=== PATIENT | male | born 1960 | race Caucasian/White ===

== ENCOUNTER → 2017-12-22 | Day surgery (SDC) | payer OTHER ==
[~2017-12-22] MED LIST: ASPIRIN EC81 MG PO; CRESTOR10 MG; FENTANYL CITRATE/PF 100MCG/2 ML INJ ONE; GLUCOSAMINE PO; HYOSCYAMINE SULFATE 0.5 MG/ML AMP ONE; LIDOCAINE HCL 2% LOCAL INJ 5 ML SDV VIAL INJ ONE; MIDAZOLAM HCL 2 MG/2 ML VIAL ONE; MULTIVITAMIN PO; PROPOFOL IV EMULSION 10 MG/ML 50 ML VIAL ONE; VASCEPA PO; ZYRTEC10 M3; [UNRECOGNIZED DRUG - OTHER] PO
[2017-12-22 12:20] VITALS: BP 108/76
--- NOTE | 2017-12-22 13:16 | Operative Report ---
DATE OF PROCEDURE: December 22, 2017 REFERRING PHYSICIAN: Dr. Theodora Pardo PROCEDURE PERFORMED: Colonoscopy with polypectomy and biopsies. INDICATIONS FOR COLONOSCOPY: Colorectal cancer screening, personal history of colon polyps. MEDICATION: Patient was done under MAC. Please see anesthesiologist's note. PROCEDURE: With the patient in the left lateral decubitus position, the flexible fiberoptic Olympus colonoscope was inserted into the rectum with ease and advanced all the way to the cecum. The mucosa overlying the cecum appeared to be within normal limits. The ileocecal valve was somewhat lobular and generous, and it was biopsied. The scope was then withdrawn slowly. Mucosa overlying the ascending appeared to be within normal limits. One polyp was snared from the transverse colon. Diverticular disease was noted to involve the distal descending and the sigmoid colon. One minute, hyperplastic-appearing polyp was hot biopsied from the sigmoid colon. The rectum appeared to be within normal limits. The scope was then retroflexed into the distal rectum, and small internal hemorrhoids were noted, none of which was actively bleeding. The scope was then straightened out. It was subsequently withdrawn. Patient tolerated the procedure well. IMPRESSION 1. Ileocecal valve lobular and generous, biopsied. 2. Transverse colon polyp, snared. 3. Diverticulosis. 4. Sigmoid colon polyp, minute, hyperplastic appearing, hot biopsied. 5. Internal hemorrhoids, none actively bleeding. PLAN: Follow up histology. Initiate high-fiber, low-fat diet. Initiate high-fiber supplement. Patient will need a followup colonoscopy in 3 to 5 years. Job#: [id number] cc:THEODORA PARDO DO
== END | disposition home or self-care (01) ==
LOC: OR 09:35
PROVIDERS: ATTEND Internal Medicine Gastroenterology
DX: Z12.11 Encounter for screening for malignant neoplasm of colon (principal); D12.3 Benign neoplasm of transverse colon; K63.89 Other specified diseases of intestine; K57.30 Diverticulosis of large intestine without perforation or abscess without bleeding; K64.8 Other hemorrhoids; R03.0 Elevated blood-pressure reading, without diagnosis of hypertension; E78.6 Lipoprotein deficiency; R00.1 Bradycardia, unspecified; Z88.0 Allergy status to penicillin; Z79.82 Long term (current) use of aspirin; Z68.26 Body mass index [BMI] 26.0-26.9, adult
CPT/HCPCS: 45380; 45384; 45385; J1980; J2001; J2250; 45378

== ENCOUNTER → 2018-01-25 | Outpatient (CLI) | payer OTHER ==
[~2018-01-25] MED LIST changes: -FENTANYL CITRATE/PF 100MCG/2 ML INJ ONE; -HYOSCYAMINE SULFATE 0.5 MG/ML AMP ONE; -LIDOCAINE HCL 2% LOCAL INJ 5 ML SDV VIAL INJ ONE; -MIDAZOLAM HCL 2 MG/2 ML VIAL ONE; -PROPOFOL IV EMULSION 10 MG/ML 50 ML VIAL ONE
--- NOTE | 2018-01-26 09:11 | Diagnostic Imaging Report ---
MRI of the left femur without contrast. History: Left thigh pain. Lipoma. Prior surgery. Technique: Multiplanar multisequence MRI of the left femur without contrast. Comparison: None Findings: There is no acute fracture, subluxation or avascular necrosis. No bone marrow edema is seen. The visualized neurovascular bundles are intact. The visualized muscles are normal in size, signal intensity and morphology. There is lobulation and scarring of the anterior lower thigh subcutaneous fat with regions of mild edema. These are likely postsurgical changes with residual superficial lipomatosis. This is best seen on axial series 2 image 40 through 55. A more focal superficial fat lobulation is seen on series 2 image 54 measuring 2.2 cm medial to lateral. This is located 3 cm superior to the superior pole of the patella. Impression: Findings consistent with postsurgical change and lobulation of the anterior superficial fat at the lower left thigh. Signed by: Dr. Bryce Soliman M.D. on 01/26/2018 9:08 AM
== END ==
LOC: MRI 14:56
PROVIDERS: ATTEND Family Medicine
DX: M79.652 Pain in left thigh (principal)

== ENCOUNTER → 2021-05-16 | Day surgery (SDC) | payer BC ==
[~2021-05-16] MED LIST changes: +FENTANYL CITRATE/PF 100MCG/2 ML INJ ONE; +HYOSCYAMINE SULFATE 0.5 MG/ML INJ ONE; +MIDAZOLAM HCL 2 MG/2 ML VIAL ONE; +PROPOFOL IV EMULSION 10 MG/ML 20 ML VIAL ONE
[2021-05-16 11:30] VITALS: BP 117/60
== END | disposition home or self-care (01) ==
LOC: OR 09:10
PROVIDERS: ATTEND Internal Medicine Gastroenterology
DX: Z09 Encounter for follow-up examination after completed treatment for conditions other than malignant neoplasm (principal); D12.5 Benign neoplasm of sigmoid colon; K57.30 Diverticulosis of large intestine without perforation or abscess without bleeding; K64.8 Other hemorrhoids; Z71.3 Dietary counseling and surveillance; E78.00 Pure hypercholesterolemia, unspecified; E78.5 Hyperlipidemia, unspecified; J30.1 Allergic rhinitis due to pollen; Z88.0 Allergy status to penicillin; Z01.810 Encounter for preprocedural cardiovascular examination; Z01.812 Encounter for preprocedural laboratory examination; Z20.822 Contact with and (suspected) exposure to COVID-19; Z79.899 Other long term (current) drug therapy; Z68.26 Body mass index [BMI] 26.0-26.9, adult
CPT/HCPCS: 45380; 93005; J1980; J2250; J2704; J3010; U0002; 45378